=== PATIENT | female | born 1995 | race Two or more races ===

== ENCOUNTER 2016-12-10 20:24 | Emergency (ER) | payer OTHER ==
[2016-12-10 21:21] LABS: APPEARANCE,URINE SLIGHTLY-CLOUDY; BILIRUBIN,URINE NEGATIVE (NEGATIVE); GLUCOSE, URINE NEGATIVE (NEGATIVE); KETONES,URINE NEGATIVE (NEGATIVE); LEUKOCYTE ESTERASE,URINE NEGATIVE (NEGATIVE); NITRITE,URINE NEGATIVE (NEGATIVE); PROTEIN,URINE NEGATIVE (NEGATIVE); UROBILINOGEN,URINE NEGATIVE mg/dL (<2.0)
--- NOTE | 2016-12-10 22:00 | ER Document Report ---
ED Medical Screen (RME) - General Chief Complaint: Abdominal Pain Stated Complaint: ABDOMINAL PAIN Time Seen by Provider: 12/10/16 21:55 Notes: 21-year-old female, chief complaint of several days of abdominal pain, seen at [facility] and given Zantac and [id number] therapies, told to be re-seen if she develops fever, she states that she had a fever of greater than 101 at home , she took Tylenol at 7 PM. She states that she has pain currently in her lower abdomen in the middle. She denies dysuria, vaginal discharge, flank pain , she states that she was vomiting but this has resolved. Denies any daily meds , LMP earlier in the month. Denies any surgeries. Sexually active with her . TRAVEL OUTSIDE OF THE [place] IN LAST 30 DAYS: No - Related Data Allergies/Adverse Reactions: amoxicillin Allergy (Verified 12/10/16 21:54) Past Medical History Renal/ Medical History: Denies: Hx Peritoneal Dialysis Physical Exam - Vital signs Vitals: Temp Pulse Resp BP Pulse Ox 98.6 F 75 18 117/64 99 12/10/16 20:50 12/10/16 20:50 12/10/16 20:50 12/10/16 20:50 12/10/16 20:50 - Abdominal Tenderness: Tender - Patient has mild to moderate tenderness in the lower/ suprapubic area on exam, no guarding, limited exam due to sitting position Course - Vital Signs Vital signs: Temp Pulse Resp BP Pulse Ox 98.6 F 75 18 117/64 99 12/10/16 20:50 12/10/16 20:50 12/10/16 20:50 12/10/16 20:50 12/10/16 20:50
[2016-12-10 22:22] LABS: ABSOLUTE EOSINOPHILS # (AUTO) 0.1 10^3/uL (0.0-0.6); ABSOLUTE LYMPHOCYTES (AUTO) 1.6 10^3/uL (0.5-4.7); ABSOLUTE NEUT (AUTO) 2.8 10^3/uL (1.7-8.2); BASOPHILS % (AUTO) 0.7 % (0-2); EOSINOPHILS % (AUTO) 1.4 % (0-6); HEMATOCRIT 35.7 % (36.0-47.0); HEMOGLOBIN 12.5 g/dL (12.0-15.5); HGB HCT DIFFERENCE 1.8; LYMPHOCYTES % (AUTO) 28.6 % (13-45); MEAN CORPUSCULAR HEMOGLOBIN 28.5 pg (27.0-33.4); MEAN CORPUSCULAR VOLUME 82 fl (80-97); MONOCYTES % (AUTO) 18.4 % (3-13); RED BLOOD COUNT 4.37 10^6/uL (3.72-5.28); RED CELL DISTRIBUTION WIDTH 14.6 % (11.5-14.0); SEGMENTED NEUTROPHILS % (AUTO) 50.9 % (42-78); WHITE BLOOD COUNT 5.5 10^3/uL (4.0-10.5)
[2016-12-10 22:38] LABS: ALANINE AMINOTRANSFERASE 27 U/L (9-52); ALBUMIN 4.1 g/dL (3.5-5.0); ALKALINE PHOSPHATASE 88 U/L (38-126); ANION GAP 12 (5-19); ASPARTATE AMINO TRANSFERASE 27 U/L (14-36); BILIRUBIN,DIRECT 0.4 mg/dL (0.0-0.4); BILIRUBIN,TOTAL 0.4 mg/dL (0.2-1.3); BLOOD UREA NITROGEN 6 mg/dL (7-20); CALCIUM 9.6 mg/dL (8.4-10.2); CARBON DIOXIDE 26 mmol/L (22-30); CHLORIDE 102 mmol/L (98-107); CREATININE RESULT 0.82 mg/dL (0.52-1.25); GLUCOSE 103 mg/dL (75-110); POTASSIUM 4.2 mmol/L (3.6-5.0); TOTAL PROTEIN 7.4 g/dL (6.3-8.2)
[2016-12-10] MEDS ORDERED: DICYCLOMINE HCL 20 MG TABLET PO ONE (23:04)
[2016-12-10] MEDS ORDERED: ONDANSETRON 4 MG TAB.RAPDIS PO ONE (23:04)
[2016-12-10] MEDS ORDERED: CIPROFLOXACIN HCL 500 MG TABLET PO ONE (23:34)
--- NOTE | 2016-12-10 23:42 | ER Document Report ---
ED GI/ - General Chief Complaint: Abdominal Pain Stated Complaint: ABDOMINAL PAIN Time Seen by Provider: 12/10/16 21:55 Notes: Patient is a 21-year-old female, chief complaint of several days of abdominal pain, seen at [facility] and given Zantac and [id number] therapies, told to be re-seen if she develops fever, she states that she had a fever of greater than 101 at home, she took Tylenol at 7 PM. She states that she has pain currently in her lower abdomen in the middle. She denies dysuria, vaginal discharge, flank pain, she states that she was vomiting but this has resolved. Denies any daily meds, LMP earlier in the month. Denies any surgeries. Sexually active with her . TRAVEL OUTSIDE OF THE [place] IN LAST 30 DAYS: No - Related Data Allergies/Adverse Reactions: amoxicillin Allergy (Verified 12/10/16 21:54) Past Medical History - General Information source: Patient, Relative - Social History Smoking Status: Never Smoker Frequency of alcohol use: None Drug Abuse: None Lives with: Spouse/Significant other Family History: Reviewed & Not Pertinent Patient has suicidal ideation: No Patient has homicidal ideation: No - Medical History Medical History: Negative Renal/ Medical History: Denies: Hx Peritoneal Dialysis Surgical Hx: Negative - Immunizations Immunizations up to date: Yes Hx Diphtheria, Pertussis, Tetanus Vaccination: Yes Review of Systems - Review of Systems Constitutional: See HPI EENT: No symptoms reported Cardiovascular: No symptoms reported Respiratory: No symptoms reported Gastrointestinal: See HPI Genitourinary: No symptoms reported Female Genitourinary: No symptoms reported Musculoskeletal: No symptoms reported Skin: No symptoms reported Hematologic/Lymphatic: No symptoms reported Neurological/Psychological: No symptoms reported Physical Exam - Vital signs Vitals: Temp Pulse Resp BP Pulse Ox 98.6 F 75 18 117/64 99 12/10/16 20:50 12/10/16 20:50 12/10/16 20:50 12/10/16 20:50 12/10/16 20:50 Interpretation: Normal - General General appearance: Appears well, Alert In distress: None - HEENT Head: Normocephalic, Atraumatic Eyes: Normal Conjunctiva: Normal Extraocular movements intact: Yes Eyelashes: Normal Pupils: PERRL Mouth/Lips: Normal Mucous membranes: Normal Pharynx: Normal Neck: Normal - Respiratory Respiratory status: No respiratory distress Chest status: Nontender Breath sounds: Normal Chest palpation: Normal - Cardiovascular Rhythm: Regular Heart sounds: Normal auscultation Murmur: No - Abdominal Inspection: Normal Distension: No distension Bowel sounds: Normal Tenderness: Nontender. No: Tender - Exam is slightly different on reexamination , I actually do not appreciate any tenderness over the abdomen, soft, no guarding, no rigidity Organomegaly: No organomegaly - Back Back: Normal, Nontender. No: Tender, CVA tenderness - Extremities General upper extremity: Normal inspection, Nontender, Normal color, Normal ROM , Normal temperature General lower extremity: Normal inspection, Nontender, Normal color, Normal ROM , Normal temperature, Normal weight bearing. No: Jennifer's sign - Neurological Neuro grossly intact: Yes Cognition: Normal Orientation: AAOx4 Fabrizio Coma Scale Eye Opening: Spontaneous Fabrizio Coma Scale Verbal: Oriented Fabrizio Coma Scale Motor: Obeys Commands Fabrizio Coma Scale Total: 15 Speech: Normal Motor strength normal: LUE, RUE, LLE, RLE Sensory: Normal - Psychological Associated symptoms: Normal affect, Normal mood - Skin Skin Temperature: Warm Skin Moisture: Dry Skin Color: Normal Course - Re-evaluation Re-evalutation: Patient has a soft abdomen, she is reporting some generalized abdominal pains, reporting fatigue. Throat exam unremarkable, no nuchal rigidity, no headache, clear lungs, well-appearing patient. Patient forgot to tell me apparently that she is having persistent diarrhea, she states she is drinking a lot of fluids but she is running to the bathroom every 20 minutes for diarrhea at times. Nonbloody. Reports fever earlier. Workup unremarkable. Discussed with patient. Discussed different treatment options, after discussion agreed to treat patient with Cipro because of her fever, ongoing diarrhea and cramping symptoms. Patient does not have any specific concerning exposures or travel. Patient is very well-appearing. Vital signs unremarkable. Providing with Jason and Severino. Discussed follow-up recommendations and return precautions. Patient and state understanding and agreement. - Vital Signs Vital signs: Temp Pulse Resp BP Pulse Ox 98.6 F 64 18 117/73 100 12/10/16 20:50 12/10/16 23:54 12/10/16 20:50 12/10/16 23:54 12/10/16 23:54 - Laboratory Result Diagrams: 12/10/16 22:10 12/10/16 22:10 Laboratory results interpreted by me: 12/10/16 12/10/16 22:10 22:10 Hct 35.7 L RDW 14.6 H Monocytes % 18.4 H BUN 6 L Discharge - Discharge Clinical Impression: Abdominal pain Qualifiers: Abdominal location: generalized Qualified Code(s): R10.84 - Generalized abdominal pain Diarrhea Qualifiers: Diarrhea type: unspecified type Qualified Code(s): R19.7 - Diarrhea, unspecified Condition: Stable Disposition: HOME, SELF-CARE Additional Instructions: Your lab workup shows no concerning abnormalities. Because of the fever, pain, and persistent diarrhea take the cipro antibiotic as prescribed. Take bentyl for pain if needed, take zofran for nausea if needed. Continue plenty of fluids. Follow up with primary care. Return to the ED for any concerning or worsening symptoms - severe pain worsening in a specific area of the abdomen, uncontrolled vomiting, bloody stools, spiking fevers, or any other concerning symptoms. Prescriptions: Ciprofloxacin HCl [Cipro 500 mg Tablet] 500 mg PO BID #14 tablet Dicyclomine HCl [Bentyl 20 mg Tablet] 20 mg PO QID #20 tablet Ondansetron [Zofran Odt 4 mg Tablet] 1 - 2 tab PO Q4H PRN #15 tab.rapdis PRN Reason: For Nausea/Vomiting Forms: Return to Work
[2016-12-10 23:56] VITALS: BP 117/73
== END 2016-12-10 23:56 | disposition home or self-care (01) ==
LOC: ER 20:24
DX: R10.84 Generalized abdominal pain (principal); R19.7 Diarrhea, unspecified; R50.9 Fever, unspecified; R53.83 Other fatigue; Z79.899 Other long term (current) drug therapy
CPT/HCPCS: 99284; 36415; 85025; 81025; 86308; 80053; 81001; J3490; S0119